=== PATIENT | female | born 1985 | race Caucasian/White ===

== ENCOUNTER 2021-02-23 05:01 | Emergency (ER) | payer OTHER, SELFPAY ==
[~2021-02-23] VITALS: Ht 175.3 cm; Wt 75.1 kg
[2021-02-23] MEDS ORDERED: TOPA50TA8 PO (05:08)
[2021-02-23 05:57] LABS: BILIRUBIN, URINE MANUAL OBSCURED (NEGATIVE); GLUCOSE, URINE (UA) MANUAL NEGATIVE (NEGATIVE); KETONE, URINE MANUAL OBSCURED mg/dL (NEGATIVE); UROBILINOGEN, URINE MANUAL OBSCURED mg/dl (NORMAL)
[2021-02-23 06:05] LABS: SQUAMOUS EPITHELIAL CELL URINE MOD AMOUNT /hpf (SMALL AMT)
[2021-02-23 06:06] LABS: CALCIUM OXALATE CRYSTALS,URINE LARGE AMOUNT /hpf
[2021-02-23 06:07] LABS: AMORPHOUS SEDIMENT, URINE SMALL AMOUNT (NEGATIVE); BACTERIA, URINE MOD AMOUNT; HYALINE CAST, URINE NONE SEEN /lpf (0-1); MUCUS, URINE SMALL AMOUNT (NEGATIVE)
[2021-02-23 07:03] LABS: BASO % 0.3 % (0.0-1.0); EOS # 0.5 10^3/uL (0.0-0.5); HEMATOCRIT 38.2 % (36.0-47.0); HEMOGLOBIN 12.6 g/dl (12.0-15.5); LYMPH # 2.1 10^3/uL (1.5-5.0); LYMPH % 21.2 % (24.0-44.0); MEAN CORPUSCULAR HEMOGLOBIN 29.5 pg (27.0-33.0); MEAN CORPUSCULAR VOLUME 89.5 fl (80.0-96.0); MONO % 9.7 % (2.0-8.0); NEUTROPHILS # 6.3 10^3/uL (1.5-8.5); NEUTROPHILS % 63.5 % (36.0-66.0); PLATELET COUNT, AUTOMATED 191 10^3/uL (150-450); RED BLOOD COUNT 4.27 10^6/uL (4.00-5.40)
--- NOTE | 2021-02-23 08:46 | REPVR ---
PROCEDURE INFORMATION: Exam: CT Abdomen And Pelvis Without Contrast Exam date and time: 02/23/2021 7:21 AM Age: 35 years old Clinical indication: Other: L flank, hematuria, calcium oxalate urine TECHNIQUE: Imaging protocol: Computed tomography of the abdomen and pelvis without contrast. Radiation optimization: All CT scans at this facility use at least one of these dose optimization techniques: automated exposure control; mA and/or kV adjustment per patient size (includes targeted exams where dose is matched to clinical indication); or iterative reconstruction. COMPARISON: No relevant prior studies available. FINDINGS: Lungs: The visualized portions of the lung bases are normal. Liver: The unenhanced liver appears unremarkable. Gallbladder and bile ducts: The gallbladder is normal with no stones or biliary ductal dilation. Pancreas: The pancreas appears unremarkable. No pancreatic ductal dilation identified. Spleen: The unenhanced spleen appears unremarkable. Adrenal glands: The adrenal glands are normal. Kidneys and ureters: The unenhanced kidneys appear unremarkable. There is no hydronephrosis. The nondilated distal ureters are difficult to trace, but no stones are seen along their expected course. Stomach and bowel: The small bowel appears unremarkable. There is no dilation or thickening of the colon. There is a large amount of stool in the colon. Correlate with symptoms of constipation. Appendix: A normal appendix is identified. Intraperitoneal space: There is no evidence of free intraperitoneal or pelvic fluid. There is no free intraperitoneal air. Vasculature: No aortic aneurysm. There are phleboliths in the pelvis. Lymph nodes: There is no gross lymphadenopathy. Urinary bladder: The bladder is unremarkable. No stones identified. Reproductive: The uterus is unremarkable. Bones/joints: No suspicious osseous lesions. No acute fractures. Soft tissues: Bilateral breast implants are partially visualized. IMPRESSION: 1. No nephrolithiasis, ureterolithiasis, or hydronephrosis. 2. Nonobstructive bowel gas pattern but a large amount of stool in the colon. Correlate with symptoms of constipation. Electronically signed by: Laurel Norman On 02/23/2021 08:46:14 AM
[2021-02-23] MEDS ORDERED: PYRI1TAB5 PO (08:48)
[2021-02-23] MEDS ORDERED: LACT10SO3 PO (08:48)
[2021-02-23 08:58] VITALS: BP 113/63
[2021-02-24] MEDS ORDERED: PHEN99.54 PO (15:33)
== END 2021-02-23 09:04 | disposition home or self-care (01) ==
LOC: M ED 05:01
DX: R30.0 Dysuria (principal); K59.00 Constipation, unspecified; G43.909 Migraine, unspecified, not intractable, without status migrainosus

== ENCOUNTER 2021-02-24 15:04 | Emergency (ER) | payer SELFPAY ==
[~2021-02-24] VITALS: Ht 175.3 cm; Wt 74.1 kg
[~2021-02-24 15:04] MED LIST: LACT10SO3 PO; PYRI1TAB5 PO; TOPA50TA8 PO
[2021-02-24 15:05] VITALS: BP 123/71
[2021-02-24] MEDS ORDERED: PHEN99.54 PO (15:33)
== END 2021-02-24 16:23 | disposition left against medical advice (07) ==
LOC: M ED 15:04
DX: Z53.21 Procedure and treatment not carried out due to patient leaving prior to being seen by health care provider (principal)